=== PATIENT | male | born 1965 | race Caucasian/White ===

== ENCOUNTER 2017-02-23 06:37 | Emergency (ER) | payer OTHER ==
[~2017-02-23 06:37] MED LIST: ASPIRIN EC81 M1 PO; CEFDINIR300 MG PO; CRESTOR40 MG PO; FENOFIBRATE145 MG PO; HCTZ12.5 MG PO; LEVOTHYROXINE100 MCG PO; LEVOTHYROXINE200 MC1 PO; LYRICA 50MG CAP50 MG PO; MUCINEX OTC; VICODIN 10/3251 EACH PO; XARELTO15 MG PO; XARELTO20 MG PO; [UNRECOGNIZED DRUG - REMARK]
[2017-02-23 07:24] LABS: BASOPHIL 0.2 % (0-2); EOSINOPHIL 1.4 % (0-5); HCT 45.8 % (42.0-52.0); HGB 15.8 g/dl (13.2-18.0); LYMPHOCYTE 17.7 % (15-48); MCH 29.8 pg (25.0-31.0); MCHC 34.5 g/dL (32.0-36.0); MCV 86.3 fL (78.0-100.0); MONOCYTE 9.2 % (0-12); NEUTROPHIL 71.5 % (41-80); PLT 189 K/uL (150-400); RBC 5.31 M/uL (4.70-6.00); RDW 13.3 % (11.5-14.0); WBC 10.8 K/uL (4.0-10.5)
[2017-02-23 07:34] LABS: INR 1.32 (0.9-1.2); PROTHROMBIN TIME 15.9 SECONDS (11.7-14.0); PTT 28.2 SECONDS (23.2-31.4)
[2017-02-23 07:41] LABS: ALBUMIN 3.8 g/dL (3.5-5.0); BILIRUBIN - TOTAL 0.3 mg/dL (0.1-1.0); CREATININE 0.7 mg/dL (0.7-1.2); GLOBULIN (CALCULATION) 2.8 g/dL (2.2-4.2); POTASSIUM 3.8 mmol/L (3.5-5.1); TOTAL PROTEIN 6.6 g/dL (6.4-8.3)
[2017-02-23 10:02] LABS: BASOPHIL NO PRINT 0.1 % (0-2); EOSINOPHIL NO PRINT 1.4 % (0-5); LYMPHOCYTE NO PRINT 18.6 % (15-48); MCH NO PRINT 29.6 pg (25.0-31.0); MCHC NO PRINT 34.1 g/dL (32.0-36.0); MCV NO PRINT 86.8 fL (78.0-100.0); MONOCYTE NO PRINT 9.9 % (0-12); PLT NO PRINT 189 K/uL (150-400); RBC NO PRINT 5.07 M/uL (4.70-6.00); RDW NO PRINT 13.4 % (11.5-14.0)
== END 2017-02-23 11:04 | disposition home or self-care (01) ==
LOC: FER 06:37
PROVIDERS: Emergency Medicine Emergency Medical Services; Internal Medicine
DX: K22.6 Gastro-esophageal laceration-hemorrhage syndrome (principal); R11.0 Nausea; I10 Essential (primary) hypertension; Z79.01 Long term (current) use of anticoagulants; Z79.899 Other long term (current) drug therapy; Z86.711 Personal history of pulmonary embolism
CPT/HCPCS: 36415; 80053; 82150; 83690; 85014; 85018; 85025; 85610; 85730; 86850; 86900; 86901; 93005; C9113; J1170; J2405; Q9967